=== PATIENT | male | born 2000 | race Two or more races ===

== ENCOUNTER → 2021-09-01 | Outpatient (REF) | LOC: M LABSMTC 09:29 | PROVIDERS: ATTEND Pediatrics | DX: Z11.52 Encounter for screening for COVID-19 (principal) ==

== ENCOUNTER 2024-02-27 17:41 | Inpatient (IN) | payer SELFPAY ==
[~2024-02-27] VITALS: Ht 175.3 cm; Wt 81.8 kg
[2024-02-27 18:27] LABS: HEMATOCRIT 48.6 % (42.0-52.0); HEMOGLOBIN 16.5 g/dl (13.5-17.5); MEAN CORPUSCULAR HEMOGLOBIN 30.1 pg (27.0-33.0); MEAN CORPUSCULAR VOLUME 88.5 fl (80.0-96.0); PLATELET COUNT, AUTOMATED 201 10^3/uL (150-450); RED BLOOD COUNT 5.49 10^6/uL (4.30-6.10); WHITE BLOOD COUNT 8.6 10^3/uL (4.0-10.0)
[2024-02-27 18:54] LABS: ETHYL ALCOHOL (ETHANOL) 0.005 % (0.000-0.010)
[2024-02-27 18:56] LABS: ALBUMIN 4.7 G/DL (3.2-5.2); ALKALINE PHOSPHATASE 75 U/L (46-116); ALT/SGPT 41 U/L (7.0-40); AST/SGOT 17 U/L (<34); BILIRUBIN,DIRECT 0.3 MG/DL (<0.4); BLOOD UREA NITROGEN 18 MG/DL (9-23); CALCIUM LEVEL 10.1 MG/DL (8.5-10.1); CARBON DIOXIDE LEVEL 28 MMOL/L (20-31); CHLORIDE LEVEL 106 MMOL/L (98-107); CREATININE FOR GFR 0.84 MG/DL (0.70-1.30); GLOMERULAR FILTRATION RATE > 60.0 (>60); GLUCOSE, FASTING 90 MG/DL (60-100); POTASSIUM SERUM 3.9 MMOL/L (3.5-5.1); SALICYLATE LEVEL < 3.0 MG/DL (<30); SODIUM LEVEL 141 MMOL/L (136-145); TOTAL PROTEIN 8.1 G/DL (5.7-8.2)
[2024-02-27 18:59] LABS: THYROID STIMULATING HORMONE 0.914 uIU/ML (0.55-4.78)
[2024-02-27 20:13] LABS: AMPHETAMINES LEVEL URINE NEGATIVE (NEGATIVE); BARBITURATES URINE NEGATIVE (NEGATIVE); BENZODIAZEPINES URINE NEGATIVE (NEGATIVE); COCAINE METABOLITE URINE NEGATIVE (NEGATIVE); METHADONE URINE NEGATIVE (NEGATIVE); OPIATES URINE NEGATIVE (NEGATIVE); PHENCYCLIDINE URINE NEGATIVE (NEGATIVE)
[2024-02-27 20:19] LABS: CANNABINOIDS URINE POSITIVE (NEGATIVE)
[2024-02-27] MEDS: LORazepam 1 MG TAB PO STA (20:56)
[2024-02-27] MEDS ORDERED: HOME MED LIST COMPLETE! XX SCH (22:30)
[2024-02-28] MEDS ORDERED: diphenhydrAMINE 25MG CAP PO PRN (14:40)
[2024-02-28] MEDS ORDERED: traZODone 50 MG TAB PO PRN (14:40)
[2024-02-28] MEDS ORDERED: MOM 30ML SUSPENSION UDC PO PRN (14:40)
[2024-02-28] MEDS ORDERED: IBUPROFEN 400MG TAB PO PRN (14:40)
[2024-02-28] MEDS ORDERED: MAALOX 30 ML SUSP *UDC PO PRN (14:40)
[2024-02-28 18:46] VITALS: BP 143/68; TEMP 98.6; O2SAT 100
[2024-02-29 06:20] VITALS: BP 121/86; TEMP 97.1; O2SAT 95
[2024-02-29 17:35] VITALS: BP 121/86; TEMP 97.1; O2SAT 95
[2024-02-29 18:32] VITALS: BP 137/86; TEMP 97.2; O2SAT 99
[2024-03-01] MEDS: OLANZapine 5 MG TAB PO SCH (09:00)
[2024-03-01 17:52] VITALS: BP 143/64; TEMP 96.8; O2SAT 99
[2024-03-02 06:05] VITALS: BP 125/71; TEMP 96.8; O2SAT 100
[2024-03-02 18:01] VITALS: BP 119/69; TEMP 98.3
[2024-03-03] MEDS: diphenhydrAMINE 50MG CAP PO STA (08:49)
[2024-03-03] MEDS: LORazepam 2 MG TAB PO STA (08:50)
[2024-03-03] MEDS: diphenhydrAMINE 50MG/ML VIAL IM STA (09:03)
[2024-03-03] MEDS: HALOPERIDOL LACTATE 5MG/ML VIAL IM STA (09:03)
[2024-03-03] MEDS: LORazepam 2 MG/ML 1ML VIAL IM STA (09:03)
[2024-03-03 09:30] VITALS: BP 135/80; TEMP 97.1; O2SAT 99
[2024-03-03 18:19] VITALS: BP 122/75; TEMP 98.4
[2024-03-03] MEDS: OLANZapine 10 MG TAB PO SCH (20:56)
[2024-03-04 06:18] VITALS: BP 139/85; TEMP 98.3; O2SAT 100
[2024-03-04 17:33] VITALS: BP 149/67; TEMP 96.5; O2SAT 99
[2024-03-05 06:21] VITALS: BP 162/72; TEMP 97.7; O2SAT 100
[2024-03-05] MEDS: NICOTINE 14 MG/24 HR TRANSDERMAL TD SCH (14:31)
[2024-03-05 18:37] VITALS: BP 136/72; TEMP 97.6; O2SAT 98
[2024-03-05] MEDS: OLANZapine 5 MG TAB PO SCH (20:26)
[2024-03-06 06:19] VITALS: BP 133/84; TEMP 97.5
[2024-03-06] MEDS: OLANZapine 5 MG TAB PO SCH (12:40)
[2024-03-07 06:31] VITALS: BP 154/93; TEMP 97.4; O2SAT 100
[2024-03-07 17:36] VITALS: BP 150/82; TEMP 97.1; O2SAT 96
[2024-03-08 06:29] VITALS: BP 129/76; TEMP 97.8; O2SAT 100
[2024-03-09 06:22] VITALS: BP 154/65; TEMP 97.3; O2SAT 99
[2024-03-09] MEDS ORDERED: OLAN1TAB16 PO (08:57)
== END 2024-03-09 11:38 | disposition home or self-care (01) | DRG 751 ==
LOC: M ED 17:41 → M ED INP 02-28 14:38 → M PSY 02-28 16:26
PROVIDERS: ADMIT Student in an Organized Health Care Education/Training Program; ATTEND Student in an Organized Health Care Education/Training Program
DX: F29 Unspecified psychosis not due to a substance or known physiological condition (principal); F19.151 Other psychoactive substance abuse with psychoactive substance-induced psychotic disorder with hallucinations; R45.851 Suicidal ideations; Z78.1 Physical restraint status; Z56.0 Unemployment, unspecified; Z81.8 Family history of other mental and behavioral disorders; Z91.51 Personal history of suicidal behavior; Z59.00 Homelessness unspecified; F17.210 Nicotine dependence, cigarettes, uncomplicated

== ENCOUNTER 2024-04-26 11:10 | Inpatient (IN) | payer MEDICAID, SELFPAY ==
[~2024-04-26] VITALS: Ht 172.7 cm; Wt 84.6 kg
[~2024-04-26 11:10] MED LIST: OLAN1TAB16 PO
[2024-04-26 12:36] LABS: HEMATOCRIT 45.1 % (42.0-52.0); HEMOGLOBIN 15.3 g/dl (13.5-17.5); MEAN CORPUSCULAR HEMOGLOBIN 30.5 pg (27.0-33.0); MEAN CORPUSCULAR HGB CONC 33.9 g/dl (32.0-36.5); PLATELET COUNT, AUTOMATED 204 10^3/uL (150-450); RED BLOOD COUNT 5.01 10^6/uL (4.30-6.10); WHITE BLOOD COUNT 6.3 10^3/uL (4.0-10.0)
[2024-04-26 12:56] LABS: ETHYL ALCOHOL (ETHANOL) 0.005 % (0.000-0.010)
[2024-04-26 12:58] LABS: ALBUMIN 4.4 G/DL (3.2-5.2); ALKALINE PHOSPHATASE 84 U/L (46-116); ALT/SGPT 25 U/L (7.0-40); AST/SGOT 24 U/L (<34); BILIRUBIN,DIRECT 0.4 MG/DL (<0.4); BILIRUBIN,TOTAL 1.3 MG/DL (0.3-1.2); BLOOD UREA NITROGEN 14 MG/DL (9-23); CALCIUM LEVEL 9.3 MG/DL (8.5-10.1); CARBON DIOXIDE LEVEL 26 MMOL/L (20-31); CHLORIDE LEVEL 105 MMOL/L (98-107); CREATININE FOR GFR 0.77 MG/DL (0.70-1.30); GLOMERULAR FILTRATION RATE > 60.0 (>60); GLUCOSE, FASTING 91 MG/DL (60-100); POTASSIUM SERUM 3.9 MMOL/L (3.5-5.1); SALICYLATE LEVEL < 3.0 MG/DL (<30); SODIUM LEVEL 138 MMOL/L (136-145); TOTAL PROTEIN 7.8 G/DL (5.7-8.2)
[2024-04-26 13:12] LABS: THYROID STIMULATING HORMONE 1.047 uIU/ML (0.55-4.78)
[2024-04-26] MEDS ORDERED: HOME MED LIST COMPLETE! XX SCH (13:25)
[2024-04-26 17:04] LABS: AMPHETAMINES LEVEL URINE NEGATIVE (NEGATIVE); BARBITURATES URINE NEGATIVE (NEGATIVE); BENZODIAZEPINES URINE NEGATIVE (NEGATIVE); COCAINE METABOLITE URINE NEGATIVE (NEGATIVE); METHADONE URINE NEGATIVE (NEGATIVE); OPIATES URINE NEGATIVE (NEGATIVE); PHENCYCLIDINE URINE NEGATIVE (NEGATIVE)
[2024-04-26 17:16] LABS: CANNABINOIDS URINE POSITIVE (NEGATIVE)
[2024-04-27] MEDS ORDERED: diphenhydrAMINE 25MG CAP PO PRN (14:15)
[2024-04-27] MEDS ORDERED: MAALOX 30 ML SUSP *UDC PO PRN (14:15)
[2024-04-27] MEDS ORDERED: ACETAMINOPHEN TAB 650MG DOSE (2X325MG) PO PRN (14:15)
[2024-04-27] MEDS ORDERED: MOM 30ML SUSPENSION UDC PO PRN (14:15)
[2024-04-27] MEDS ORDERED: IBUPROFEN 400MG TAB PO PRN (14:15)
[2024-04-27 17:00] VITALS: BP 119/69; TEMP 97.3
[2024-04-28 06:19] VITALS: BP 117/67; TEMP 97.6; O2SAT 99
[2024-04-28] MEDS: buPROPion (WELLBUTRIN SR) 100 MG SR TAB PO SCH (10:44)
[2024-04-28] MEDS: ERYTHROMYCIN OPHTH OINT OU SCH (16:22)
[2024-04-28 16:49] VITALS: BP 123/75; TEMP 97.6; O2SAT 100
[2024-04-28] MEDS: OLANZapine 5 MG TAB PO SCH (20:21)
[2024-04-29 06:25] VITALS: BP 131/72; TEMP 96.9; O2SAT 100
[2024-04-29 15:39] VITALS: BP 115/63; TEMP 97.6; O2SAT 99
[2024-04-30 16:20] VITALS: BP 132/79; TEMP 97.7; O2SAT 100
[2024-04-30] MEDS: OLANZapine 10 MG TAB PO SCH (20:12)
[2024-04-30] MEDS: POLYTRIM OPTH DROPS 10ML OU SCH (20:46)
[2024-05-01 06:23] VITALS: BP 118/62; TEMP 98.2; O2SAT 96
[2024-05-02 06:45] VITALS: BP 117/62; TEMP 98.3; O2SAT 98
[2024-05-02 15:58] VITALS: BP 122/66; TEMP 97.8; O2SAT 100
[2024-05-03 06:28] VITALS: BP 136/74; TEMP 98; O2SAT 98
[2024-05-04 15:56] VITALS: BP 117/63; TEMP 97.8; O2SAT 98
[2024-05-05 06:27] VITALS: BP 121/60; TEMP 97.3; O2SAT 98
[2024-05-05 16:01] VITALS: BP 120/69; TEMP 98; O2SAT 99
[2024-05-06 06:22] VITALS: BP 124/77; TEMP 97.1; O2SAT 100
[2024-05-06 16:27] VITALS: BP 128/66; TEMP 97.6; O2SAT 98
[2024-05-07 06:21] VITALS: BP 122/66; TEMP 97; O2SAT 100
[2024-05-07 14:39] VITALS: BP 128/70; TEMP 97; O2SAT 99
[2024-05-08 06:24] VITALS: BP 121/69; TEMP 97; O2SAT 98
[2024-05-09 06:27] VITALS: BP 118/65; TEMP 97.2
[2024-05-09 14:43] VITALS: BP 131/67; TEMP 97.5; O2SAT 100
[2024-05-09] MEDS: traZODone 50 MG TAB PO PRN (20:16)
[2024-05-10 06:06] VITALS: BP 137/68; TEMP 97.2; O2SAT 98
[2024-05-11 07:33] VITALS: BP 125/76; TEMP 97.2; O2SAT 99
[2024-05-11 14:26] VITALS: BP 115/55; TEMP 97.7; O2SAT 99
[2024-05-12 06:28] VITALS: BP 137/67; TEMP 97.2; O2SAT 98
[2024-05-12 15:30] VITALS: BP 128/62; TEMP 97.7; O2SAT 100
[2024-05-13 06:24] VITALS: BP 135/72; TEMP 97.2; O2SAT 99
[2024-05-14 15:09] VITALS: BP 121/71; TEMP 98.4; O2SAT 96
[2024-05-15] MEDS ORDERED: OLAN1TAB20 PO (09:17)
[2024-05-15] MEDS ORDERED: BUPR10TASR PO (09:17)
== END 2024-05-15 12:50 | disposition home or self-care (01) | DRG 751 ==
LOC: M ED 11:10 → EDBD 11:10 → M ED INP 04-27 14:14 → M PSY 04-27 16:26
PROVIDERS: ADMIT Psychiatry & Neurology Psychiatry; ATTEND Psychiatry & Neurology Psychiatry
DX: F33.9 Major depressive disorder, recurrent, unspecified (principal); F17.210 Nicotine dependence, cigarettes, uncomplicated; H10.9 Unspecified conjunctivitis; Z56.0 Unemployment, unspecified; Z59.00 Homelessness unspecified; Z62.819 Personal history of unspecified abuse in childhood

== ENCOUNTER 2025-06-05 04:22 | Emergency (ER) | payer MEDICAID, OTHER ==
[~2025-06-05] VITALS: Ht 175.3 cm; Wt 79.3 kg
[~2025-06-05 04:22] MED LIST changes: +BUPR10TASR PO; +OLAN1TAB20 PO
[2025-06-05 04:25] VITALS: BP 130/67; TEMP 97.2; O2SAT 98
[2025-06-06] MEDS ORDERED: VENTAER INH (12:53)
== END 2025-06-05 06:32 | disposition left against medical advice (07) ==
LOC: M ED 04:22
DX: Z53.21 Procedure and treatment not carried out due to patient leaving prior to being seen by health care provider (principal)

== ENCOUNTER 2025-06-06 09:36 | Emergency (ER) | payer OTHER ==
[~2025-06-06] VITALS: Ht 175.3 cm; Wt 78.4 kg
[2025-06-06] MEDS ORDERED: VENTAER INH (12:53)
[2025-06-06 13:06] VITALS: BP 145/87; TEMP 97.6; O2SAT 99
== END 2025-06-06 13:05 | disposition home or self-care (01) ==
LOC: M ED 09:36
DX: J45.909 Unspecified asthma, uncomplicated (principal); B34.1 Enterovirus infection, unspecified; R05.9 Cough, unspecified; J00 Acute nasopharyngitis [common cold]; F32.A Depression, unspecified; F17.210 Nicotine dependence, cigarettes, uncomplicated; Z79.51 Long term (current) use of inhaled steroids